=== PATIENT | female | born 2000 | race Caucasian/White ===

== ENCOUNTER 2019-09-15 05:51 | Inpatient (IN) | payer MEDICAID, OTHER ==
[2019-09-15 06:33] VITALS: BMI 39.4
[2019-09-15] MEDS ORDERED: Diphenoxylate HCl/Atropine Tablet PO PRN (07:01)
[2019-09-15] MEDS ORDERED: Methylergonovine 0.2 MG/ML VIAL IM PRN (07:01)
[2019-09-15] MEDS ORDERED: Butorphanol Tartrate 1 MG/ML VIAL SLOW IVP PRN (07:01)
[2019-09-15] MEDS ORDERED: Ondansetron PF 4 MG/2 ML Vial IVP PRN ×2 (07:01→11:05)
[2019-09-15] MEDS ORDERED: Promethazine HCl 25 MG/ML VIAL IM PRN ×2 (07:01→11:05)
[2019-09-15] MEDS ORDERED: hydrALAZINE 20 MG/ML VIAL SLOW IVP PRN (07:01)
[2019-09-15] MEDS ORDERED: Ibuprofen 800 MG TAB PO PRN (07:01)
[2019-09-15] MEDS ORDERED: Misoprostol 200 MCG TAB PR PRN (07:01)
[2019-09-15] MEDS ORDERED: Lidocaine 1% (PF) 30 ML VIAL SC PRN (07:01)
[2019-09-15] MEDS ORDERED: Acetaminophen 500 MG TAB PO PRN (07:01)
[2019-09-15] MEDS ORDERED: NS / Oxytocin 40 units/1000ml 1,000 ML IV PRN (07:01)
[2019-09-15] MEDS ORDERED: HYDROcodone/Acetaminophen 5/325 mg Tablet PO PRN (07:01)
[2019-09-15] MEDS ORDERED: Carboprost 250 MCG/ML AMP IM PRN (07:01)
[2019-09-15] MEDS ORDERED: NS w/ Oxytocin 10 units 500 ML IV SCH (07:15)
[2019-09-15] MEDS: Lactated Ringer's 1,000 ML IV SCH ×3 (07:22→20:10)
[2019-09-15 07:24] LABS: Mean Corpuscular HGB CONC 34.5 g/dL (32.0-36.0); Mean Corpuscular Hemoglobin 33.1 pg (25.0-35.0); Mean Corpuscular Volume 96.2 fL (78.0-98.0); Mean Platelet Volume 7.4 fL (7.4-10.4); Platelet Count 347 thou/uL (130-400); RBC Distribution Width 11.6 % (11.5-14.5); Red Blood Cell (RBC) Count 4.23 mill/uL (4.00-5.20); White Blood Cell (WBC) Count 19.8 thou/uL (4.8-10.8)
[2019-09-15 08:05] LABS: Hep B Surf Ag Non-Reactive S/CO (NonReactive)
[2019-09-15 08:09] LABS: Syphilis Antibody Nonreactive (Nonreactive); Syphilis Antibody Index 0.05 S/CO (<1.00 Non-Reactive)
[2019-09-15] MEDS ORDERED: Bupivacaine/Epinephrine 0.25% 30 ML VIAL ONE (08:59)
[2019-09-15 09:41] LABS: Amphetamine Not Detected (NotDetected); Barbiturates Screen Not Detected (NotDetected); Benzodiazepine Screen Not Detected (NotDetected); Cocaine Metabolite Screen Not Detected (NotDetected); Medtox Control Line Valid? VALID (VALID); Medtox Reader # READER 1; Methadone Not Detected (NotDetected); Methamphetamine Not Detected (NotDetected); Opiate Screen Not Detected (NotDetected); Oxycodone Screen Not Detected (NotDetected); Phencyclidine (PCP) Not Detected (NotDetected); THC/Cannabinoid Screen Not Detected (NotDetected); Tricyclic Screen Not Detected (NotDetected)
--- NOTE | 2019-09-15 09:51 | PDOC.LDHP ---
Labor and Delivery H&P Chief complaint: scheduled induction HPI: 18yo at 39w 0d by LMP here for elective IOL. No complaints, no PIH sx Current gestational age (weeks): 39 Due date: 09/22/19 Dating criteria: last menstrual period Grav: 3 Para: 0 Current complications: none Abnormal US findings: No (EFW 51%ile) Past Medical History: HSV, molluscum contagiosum Current medications: pre- vitamins, other (valtrex, sertraline) Previous surgical history: none Allergies/Adverse Reactions: Allergies Allergy/AdvReac Type Severity Reaction Status Date / Time No Known Allergies Allergy Verified 09/15/19 06:18 Social history: drug use (hx of thc use), none - Physical Exam Vital signs reviewed and normal: yes General: NAD Heart: RRR Lungs: CTAB Abdomen: gravid Extremeties: no edema FHT: category 1 [place] contractions every: 3min - Vaginal Exam cm dilated: 3 Effacement: 75% Station: -2 (arom clear) - OB Labs Blood type: A RH: positive Antibody Screen: negative HIV: negative RPR: negative HEPSAg: negative 1 hour GCT: negative GBS: negative Urine drug screen: positive Rubella: immune - Assessment L&D Assessment: elective induction at term - Plan Plan: admit to L&D, labor augmentation if indicated, informed consent obtained, anesthesia consult for pain management -: No HSV lesions on exam or prodromal sx, on suppression
[2019-09-15] MEDS ORDERED: Fentanyl 4 mcg/Bup 0.1% Cadd 100 ML ONE ×3 (10:28→23:44)
[2019-09-15] MEDS ORDERED: diphenhydrAMINE 50 MG/ML VIAL IVP PRN (11:05)
[2019-09-15] MEDS ORDERED: EPHEDRINE 25 MG/5 ML SYRINGE SLOW IVP PRN (11:05)
[2019-09-15] MEDS ORDERED: Lactated Ringer's 500 ML IV PRN (11:05)
[2019-09-15] MEDS ORDERED: Naloxone HCl 0.4 mg/ml Vial IVP PRN ×2 (11:05)
[2019-09-15] MEDS ORDERED: Acetaminophen 325 MG TAB PO PRN (11:05)
[2019-09-15] MEDS ORDERED: Fentanyl 4 mcg/Bupivacaine 0.1% Cassette 100 ML EPIDURAL SCH (11:15)
[2019-09-15] MEDS ORDERED: Communication Order-Pharmacy FS SCH (11:15)
[2019-09-15] MEDS ORDERED: Hydrocerin (Eucerin) Cream 120 gm Jar ONE (18:11)
[2019-09-15] MEDS ORDERED: Hydrocerin (Eucerin) Cream 120 gm Jar TOP SCH (18:30)
[2019-09-16] MEDS: Lactated Ringer's 1,000 ML IV SCH (00:13)
[2019-09-16] MEDS ORDERED: Oxytocin 10 UNITS/ML VIAL ONE ×2 (00:36→01:35)
[2019-09-16] MEDS ORDERED: MORPHINE 5 MG/10 ML PF VIAL ONE (00:37)
[2019-09-16] MEDS ORDERED: Lidocaine 2% MPF 10 ML AMP (For Epidural Use) ONE (00:38)
[2019-09-16] MEDS ORDERED: PHENYLEPHRINE-NS 100 MCG/ML 10 ML SYRINGE ONE (00:38)
[2019-09-16] MEDS ORDERED: Ondansetron PF 4 MG/2 ML Vial ONE (00:38)
[2019-09-16] MEDS ORDERED: EPHEDRINE 25 MG/5 ML SYRINGE ONE (00:38)
[2019-09-16] MEDS ORDERED: Ketorolac Tromethamine 30 MG/ML VIAL ONE (00:38)
[2019-09-16] MEDS ORDERED: Bicitra 30 ML UDCUP ONE (00:47)
[2019-09-16] MEDS ORDERED: Azithromycin 500 MG VIAL ONE (00:49)
--- NOTE | 2019-09-16 00:54 | PDOC.LDPN ---
Labor & Delivery Progress Note - Subjective Subjective: comfortable - Objective Vital signs reviewed and normal: yes General: NAD Uterine fundus: non tender Dilation: 7 Effacement: 90% Station: 0 FHT: category 2, late decelerations [place] contractions every: 2-3min Resuscitative measures: maternal IV fluids, maternal position change, other Plan: resuscitative measures -: Patient has been arrested at 7cm since 1700 (7hr) and has had 2 episodes of late or prolonged decels requiring turning pitocin off. Baby recovers to Cat 1 with this intervention. Dispo for PCS for AOAP at 7cm and NRFHT. Risks and benefits discussed with patient. Pt desires to proceed.
--- NOTE | 2019-09-16 00:57 | PDOC.OPDEL ---
OB Operative/Delivery Note Delivery Dr/Surgeon: Monisha Assist: Linda Pre-Delivery Diagnosis: arrest of dilation (at 7cm) Procedure/Post Delivery Dx: primary low transverse CS Weeks gestation: 39 Anesthesia: epidural - Findings A Sex: male - Additional Findings/Plan Placenta delivered: spontaneous findings: low transverse hysterotomy without extension, normal uterus, normal tubes, normal ovaries Post delivery plan: routine recovery
[2019-09-16] MEDS ORDERED: Azithromycin 500 MG in Sodium Chloride 0.9% 250 ML 250 ML IVPB SCH (01:00)
[2019-09-16] MEDS ORDERED: Bicitra 30 ML UDCUP PO SCH (01:00)
[2019-09-16] MEDS ORDERED: CEFAZOLIN 2 GM in Premix Bag 1 BAG IVPB SCH (01:00)
[2019-09-16] MEDS ORDERED: Promethazine HCl 25 MG/ML VIAL ONE (01:40)
[2019-09-16] MEDS ORDERED: L&D-Morphine 4 MG/ML VIAL SLOW IVP PRN (01:47)
[2019-09-16] MEDS ORDERED: Naloxone HCl 0.4 mg/ml Vial IV PRN (01:47)
[2019-09-16] MEDS ORDERED: Promethazine HCl 25 MG/ML VIAL IM PRN ×2 (01:47→04:11)
[2019-09-16] MEDS ORDERED: Meperidine HCl/PF 25 MG/ML VIAL SLOW IVP PRN (01:47)
[2019-09-16] MEDS ORDERED: Ondansetron HCl/PF 4 MG/2 ML Vial IVP PRN (01:47)
[2019-09-16] MEDS ORDERED: diphenhydrAMINE 50 MG/ML VIAL IVP PRN (01:47)
[2019-09-16] MEDS ORDERED: Promethazine HCl 25 MG SUPP PR PRN (01:47)
[2019-09-16] MEDS ORDERED: Ondansetron PF 4 MG/2 ML Vial IVP PRN ×2 (01:47→04:11)
[2019-09-16] MEDS ORDERED: HYDROmorphone 2 MG/ML VIAL SLOW IVP PRN (01:47)
[2019-09-16] MEDS ORDERED: Naloxone HCl 0.4 mg/ml Vial IVP PRN ×2 (01:47)
[2019-09-16] MEDS ORDERED: Ketorolac Tromethamine 30 MG/ML VIAL IVP SCH (02:00)
[2019-09-16] MEDS ORDERED: Communication Order-Pharmacy FS SCH (02:00)
[2019-09-16] MEDS ORDERED: Meperidine HCl/PF 25 MG/ML VIAL ONE (03:52)
[2019-09-16] MEDS ORDERED: Acetaminophen 325 MG TAB PO PRN (04:11)
[2019-09-16] MEDS ORDERED: hydrALAZINE 20 MG/ML VIAL SLOW IVP PRN (04:11)
[2019-09-16] MEDS ORDERED: Bisacodyl 10 MG SUPP PR PRN (04:11)
[2019-09-16] MEDS ORDERED: diphenhydrAMINE 25 MG CAP PO PRN (04:11)
[2019-09-16] MEDS ORDERED: Lanolin Ointment 7 GM TUBE TOP PRN (04:11)
[2019-09-16] MEDS: Ibuprofen 800 MG TAB PO SCH ×3 (06:48→22:28)
[2019-09-16] MEDS: Ketorolac Tromethamine 30 MG/ML VIAL IVP PRN ×2 (07:33→13:30)
[2019-09-16] MEDS ORDERED: Adacel (T-DAP) 0.5 ML SYRINGE IM ONE (09:00)
[2019-09-16] MEDS: Ferrous Sulfate 325 MG TAB PO SCH ×2 (09:32→22:25)
[2019-09-16] MEDS: Docusate Calcium (SURFAK) 240 MG CAP PO SCH ×2 (09:33→22:29)
[2019-09-16] MEDS: Prenatal Vitamin 1 TAB PO SCH (09:33)
[2019-09-16] MEDS: Morphine 2 MG/ML SYRINGE SLOW IVP PRN ×2 (10:11→12:02)
[2019-09-16] MEDS: HYDROcodone/Acetaminophen 5/325 mg Tablet PO PRN ×2 (15:04→20:22)
[2019-09-16] MEDS: Simethicone Chewable 80 MG TAB PO PRN ×2 (15:04→20:22)
--- NOTE | 2019-09-16 16:29 | OP ---
DATE OF PROCEDURE: 09/16/2019 PREOPERATIVE DIAGNOSES: 1. Intrauterine at 39 weeks and 1 day. 2. Arrest of active phase at 7 cm. 3. Non-reassuring heart tones. POSTOPERATIVE DIAGNOSES: 1. Intrauterine at 39 weeks and 1 day. 2. Arrest of active phase at 7 cm. 3. Non-reassuring heart tones. PROCEDURE PERFORMED: Primary low-transverse section via Pfannenstiel skin incision. ANESTHESIA: Epidural. POWERSAW SUPERVISOR SURGEON: Linda, PGY-3. ESTIMATED BLOOD LOSS: 500 mL. COMPLICATIONS: None. DRAINS: Moran catheter. PATHOLOGY: None. FINDINGS: Male infant, cephalic presentation, XAVIER, asynclitic with caput and molding. Weight and Apgars are currently pending. Hysterotomy without extension. Normal uterus, ovaries, and tubes bilaterally. DESCRIPTION OF PROCEDURE: The patient was taken to the operating room, where epidural anesthesia was found to be inadequate. The patient was prepped and draped in a sterile fashion in a dorsal supine position with a leftward tilt. After ensuring adequacy of anesthesia, a Pfannenstiel skin incision was made and carried down to the underlying subcutaneous tissue with a knife. The fascia was nicked in the midline with the Bovie and carried laterally with the Echeverria scissors. The superior aspect of the fascia was tented with 2 Kochers and dissected off the rectus with the Echeverria scissors. The inferior aspect of the fascia was tented with 2 Kochers and dissected off the rectus down to pubic symphysis. The rectus was bluntly divided in midline. The peritoneum was bluntly entered into and manually retracted. The Rufino O retractor was placed and the lower uterine segment was incised in a transverse fashion and extended with a Gannon maneuver. The 's head was brought to the hysterotomy and delivered atraumatically with fundal pressure. The 's cord was clamped and handed to awaiting Ricardo team. Cord blood was obtained and the placenta was allowed to spontaneously deliver. The uterus was exteriorized, cleared of all clots and debris, and the posterior cul-de-sac was left out. The uterus was placed back into the abdomen and hysterotomy was repaired with #1 Monocryl in a running locking fashion. Additional [id number] #1 Monocryl suture was placed over the left aspect of the incision for hemostasis. Irrigation was performed of the pelvis and paracolic gutters and suctioned and hemostasis was noted to be excellent. The Rufino O retractor was removed. The rectus muscles were examined and noted to be hemostatic. The fascia was reapproximated with 0 PDS x2 sutures with excellent reapproximation. The subcutaneous tissue was irrigated and cauterized of any bleeders and reapproximated with 2-0 plain gut in a running fashion. The skin was closed with 4-0 Monocryl in a subcuticular fashion. Dermabond was applied as well as a pressure dressing. The patient tolerated the procedure well. Sponge, lap, and needle counts were correct x2. The patient was taken to recovery room in stable condition. The patient received Ancef 2 g and azithromycin 500 mg IV prior to procedure. Job ID: [id number]
[2019-09-16] MEDS ORDERED: Diabetic Tussin 200 MG/10 ML UDCUP PO PRN (18:29)
[2019-09-17] MEDS: HYDROcodone/Acetaminophen 5/325 mg Tablet PO PRN ×5 (04:46→22:47)
[2019-09-17] MEDS: Ibuprofen 800 MG TAB PO SCH ×3 (04:46→22:04)
[2019-09-17] MEDS ORDERED: Sodium Chloride 0.9% 0 ML ONE (04:59)
[2019-09-17 06:03] LABS: Hemoglobin 10.9 g/dL (12.0-16.0); Mean Corpuscular HGB CONC 32.8 g/dL (32.0-36.0); Mean Corpuscular Hemoglobin 31.9 pg (25.0-35.0); Mean Corpuscular Volume 97.3 fL (78.0-98.0); Mean Platelet Volume 7.5 fL (7.4-10.4); Platelet Count 250 thou/uL (130-400); RBC Distribution Width 11.9 % (11.5-14.5); White Blood Cell (WBC) Count 24.5 thou/uL (4.8-10.8)
[2019-09-17] MEDS: Ferrous Sulfate 325 MG TAB PO SCH ×2 (07:37→22:03)
[2019-09-17] MEDS: Docusate Calcium (SURFAK) 240 MG CAP PO SCH ×2 (08:26→22:04)
[2019-09-17] MEDS: Prenatal Vitamin 1 TAB PO SCH (08:26)
--- NOTE | 2019-09-17 11:27 | PDOC.PP ---
Post Progress Note Post Day #: 1 PO intake tolerated: yes Flatus: yes Ambulation: yes Vital Signs (12 hours) Temp Pulse Resp BP Pulse Ox 09/17/19 07:41 98.0 F 85 20 110/57 L 95 09/17/19 04:48 98.2 F 78 12 116/59 L 97 09/17/19 00:32 97.9 F 72 12 97/50 L 96 Weight Weight 230 lb - Physical Examination General: NAD Respiratory: non-labored breathing Abdominal: no distention, appropriately TTP Fundus firm & at: umb Extremities: negative homans (B) Skin: CS incision dry & intact Neurological: no gross focal deficits Psychiatric: normal affect Result Diagrams: 09/17/19 05:28 Additional Labs: Post Labs Blood Type A POSITIVE 09/15/19 07:43 Hep Bs Antigen Non-Reactive S/CO (NonReactive) 09/15/19 07:13 - Assessment/Plan POD1 s/p PCS for AOAP VSSAF Doing well, appropriate milestones Mild asymptomatic anemia due to surgical blood loss, cont PNV, appropriate drop in hgb. Breast and bottlefeeding Rh pos RImm Cont postop care, home tomorrow
[2019-09-18] MEDS: Ibuprofen 800 MG TAB PO SCH (05:12)
[2019-09-18 08:24] VITALS: BP 113/57; TEMP 98.2
[2019-09-18] MEDS: Docusate Calcium (SURFAK) 240 MG CAP PO SCH (09:13)
[2019-09-18] MEDS: Ferrous Sulfate 325 MG TAB PO SCH (09:13)
[2019-09-18] MEDS: Prenatal Vitamin 1 TAB PO SCH (09:13)
[2019-09-18] MEDS: HYDROcodone/Acetaminophen 5/325 mg Tablet PO PRN (10:37)
--- NOTE | 2019-09-18 11:16 | PDOC.PP ---
Post Progress Note Post Day #: 2 PO intake tolerated: yes Flatus: yes Ambulation: yes Vital Signs (12 hours) Temp Pulse Resp BP Pulse Ox 09/18/19 08:23 98.2 F 88 20 113/57 L 98 09/18/19 08:10 98 09/18/19 05:11 97.9 F 77 12 95/53 L 96 09/18/19 00:46 98.1 F 93 12 114/53 L 95 Weight Weight 230 lb - Physical Examination General: NAD Respiratory: non-labored breathing Abdominal: no distention, appropriately TTP Skin: CS incision dry & intact Neurological: no gross focal deficits Psychiatric: normal affect Result Diagrams: 09/17/19 05:28 Additional Labs: Post Labs Blood Type A POSITIVE 09/15/19 07:43 Hep Bs Antigen Non-Reactive S/CO (NonReactive) 09/15/19 07:13 - Assessment/Plan POD2 s/p PCS for AOAP VSSAF Doing well pain controlled, weaning off norco Hgb 10.9 postop, mild anemia d/t surgical blood loss, asx Rh pos RImm Br & jose feeding DC home FU 2wk
--- NOTE | 2019-09-20 23:00 | PQF ---
[employer] [facility] [facility] ROBERT MADSEN [id number] CLINICAL DOCUMENTATION CLARIFICATION FORM: POST DISCHARGE Addendum to original discharge summary date: ____ Late entry note date: __ DATE: 09/20/2019 ATTN: Robert Montanez Please exercise your independent, professional judgment in responding to the clarification form. Clinical indicators are provided on the bottom of this form for your review Kindly clarify regarding anemia Please check appropriate box(s): [ ] Acute blood loss anemia [ X ] Post-op anemia related to acute blood loss [ ] Other diagnosis [ ] Unable to determine In addition, please specify: Present on Admission (POA): [ ] Yes [ X] No [ ] Unable to determine For continuity of documentation, please document condition throughout progress notes and discharge summary. Thank You. CLINICAL INDICATORS - SIGNS / SYMPTOMS / LABS Mild asymptomatic anemia due to surgical blood loss, continue PNV, appropriate drop in HGB - progress note dated 09/16 by Robert Montanez HGB 10.9 postop, mild anemia due to surgical blood loss - progress note dated 09/17 by Robert Montanez Hemoglobin is 14.0 on 09/14 and 10.9 on 09/16 and hematocrit is 40.7 on 09/14 and 33.1 on 09/16 - Laboratory RISK FACTORS Primary low transverse section dated 09/15 by Robert Montanez - Operative notes dated 09/15 TREATMENTS: Continue PNV - progress note dated 09/16 by Robert Montanez IM Hemabate from 09/14 to 09/15 - Medications (This form is maintained as a part of the permanent medical record) 2014 [employer]. All Rights Reserved [email or web address]
== END 2019-09-18 12:35 | disposition home or self-care (01) | DRG 787 ==
LOC: L&D 05:51 → 3SW 09-16 05:02 → EDSTATUS 09-22 15:05
PROVIDERS: ADMIT Student in an Organized Health Care Education/Training Program; ATTEND Student in an Organized Health Care Education/Training Program
PROC: 10D00Z1 Extraction of Products of Conception, Low, Open Approach (ICD-10-PCS; principal; 2019-09-16)
DX: O76 Abnormality in fetal heart rate and rhythm complicating labor and delivery (principal); D62 Acute posthemorrhagic anemia; O62.1 Secondary uterine inertia; Z3A.39 39 weeks gestation of pregnancy; Z37.0 Single live birth; O90.81 Anemia of the puerperium
CPT/HCPCS: 36415; 51702; 80306; 85027; 86780; 86850; 86900; 86901; 87340; J0456; J0690; J1885; J2001; J2175; J2270; J2274; J2405; J2550; J2590

== ENCOUNTER 2019-11-19 11:06 | Emergency (ER) | payer OTHER ==
--- NOTE | 2019-11-19 13:55 | RAD ---
TWO VIEW CHEST: 11/19/19 HISTORY: Cough. Lung hayes are clear. No infiltrate. The heart and mediastinum unremarkable. Osseous structures appe ar normal. IMPRESSION: Negative chest. POS: AH
== END 2019-11-19 12:30 | disposition home or self-care (01) ==
LOC: ERS 11:06
DX: R05 Cough (principal); Z20.828 Contact with and (suspected) exposure to other viral communicable diseases
CPT/HCPCS: 71046; 87635; U0003

== ENCOUNTER 2022-05-03 08:56 | Outpatient (CLI) | payer OTHER | END 2022-05-03 08:57 | disposition home or self-care (01) | LOC: BICULT 08:56 | PROVIDERS: ATTEND Physician Assistant Medical | DX: R74.01 Elevation of levels of liver transaminase levels (principal); R76.8 Other specified abnormal immunological findings in serum | CPT/HCPCS: 76705 ==

== ENCOUNTER 2022-08-23 03:39 | Observation (INO) | payer MEDICAID, OTHER ==
[2022-08-23] MEDS ORDERED: Ondansetron PF 4 MG/2 ML Vial ONE ×2 (03:51→04:00)
[2022-08-23] MEDS ORDERED: Ketorolac Tromethamine 30 MG/ML VIAL ONE (04:00)
[2022-08-23 04:33] LABS: #Basophils 0.1 thou/uL (0.0-0.2); #Eosinphils 0.2 thou/uL (0.0-0.7); #Lymphocytes 3.8 thou/uL (1.20-3.40); #Monocytes 1.3 thou/uL (0.11-0.59); #Neutrophils 12.5 thou/uL (1.40-6.50); %Basophils 0.6 % (0.0-1.0); %Eosinophils 1.1 % (0.0-10.0); %Lymphocytes 21.4 % (21.0-51.0); %Monocytes 7.3 % (0.0-10.0); %Neutrophils 69.6 % (42.0-75.0); Hemoglobin 13.3 g/dL (12.0-16.0); Mean Corpuscular HGB CONC 33.2 g/dL (32.0-36.0); Mean Corpuscular Hemoglobin 31.6 pg (27.0-31.0); Mean Corpuscular Volume 95.2 fl (78.0-98.0); Mean Platelet Volume 6.9 fL (7.4-10.4); Platelet Count 375 10x3/uL (130-400); RBC Distribution Width 11.6 % (11.5-14.5); White Blood Cell (WBC) Count 17.9 10x3/uL (4.8-10.8)
[2022-08-23 04:40] LABS: BHCG - Serum Negative (NEGATIVE); Pregs Control Background? CLEAR/WHITE (CLR/WHITE); Pregs Control Bar Appear? YES (CONTROL BAR)
[2022-08-23] MEDS ORDERED: FENTANYL 50 MCG/ML 1 ML VIAL ONE (04:53)
[2022-08-23 05:03] LABS: ALT (SGPT) 15 U/L (8-55); AST (SGOT) 13 U/L (5-34); Alkaline Phosphatase 61 U/L (40-110); Anion Gap 14 mmol/L (10-20); BUN (Urea Nitrogen) 13 mg/dL (7.0-18.7); Bilirubin, Total Less than 0.2 mg/dL (0.2-1.2); Calc. Creatinine Clearance 0 mL/min (70-130); Calcium 9.2 mg/dL (7.8-10.44); Carbon Dioxide 23 mmol/L (22-29); Chloride 109 mmol/L (98-107); Estimated GFR 102; Globulin 2.6 g/dL (2.4-3.5); Glucose 152 mg/dL (70-105); Lipase 40 U/L (8-78); Potassium 3.3 mmol/L (3.5-5.1); Protein, Total 6.6 g/dL (6.0-8.3); Sodium 143 mmol/L (136-145)
[2022-08-23 05:42] LABS: Bacteria/HPF None Seen HPF (None Seen); Bilirubin Negative (Negative); Blood, Urine Negative (Negative); Clarity Clear (Clear); Glucose, Urine (Dipstick) Normal (Negative); Ketone, Urine Trace mg/dL (Negative); Leukocyte Negative Leu/uL (Negative); Nitrite Negative (Negative); Protein, Urine (Dipstick) 30 mg/dL (Neg-Trace); RBC/HPF 0-3 HPF (0-3); Specific Gravity, Urine 1.035 (1.002-1.036); pH, Urine 5.5 (5.0-9.0)
[2022-08-23] MEDS ORDERED: Morphine 4 MG/ML VIAL ONE (05:58)
[2022-08-23] MEDS ORDERED: Metoclopramide HCl 10 MG/2 ML VIAL ONE (05:59)
[2022-08-23] MEDS ORDERED: Guaifenesin DM 100-10/5 ML UDCUP PO PRN (07:37)
[2022-08-23] MEDS ORDERED: Ondansetron PF 4 MG/2 ML Vial IVP PRN (07:37)
[2022-08-23] MEDS ORDERED: Ketorolac Tromethamine 30 MG/ML VIAL IVP PRN (07:43)
[2022-08-23 07:59] LABS: Amphetamine Not Detected (NotDetected); Barbiturates Screen Not Detected (NotDetected); Benzodiazepine Screen Not Detected (NotDetected); Cocaine Metabolite Screen Not Detected (NotDetected); Methadone Not Detected (NotDetected); Methamphetamine Not Detected (NotDetected); Opiate Screen Not Detected (NotDetected); Oxycodone Screen Not Detected (NotDetected); Phencyclidine (PCP) Not Detected (NotDetected); THC/Cannabinoid Screen Detected (NotDetected); Tricyclic Screen Not Detected (NotDetected)
[2022-08-23] MEDS ORDERED: HYDROcodone/Acetaminophen 10/325 mg Tablet PO PRN (08:24)
[2022-08-23] MEDS ORDERED: Iopamidol-370 76% 500 ML 1 ML ONE (09:03)
[2022-08-23] MEDS: Sodium Chloride 0.9% 1,000 ML IV SCH ×2 (09:06→21:33)
[2022-08-23] MEDS: FLUoxetine HCl 20 MG CAP PO SCH (09:07)
[2022-08-23 10:29] VITALS: BMI 36.2
[2022-08-23] MEDS ORDERED: Melatonin 3 MG TAB PO PRN (20:16)
[2022-08-23] MEDS ORDERED: Calcium Carbonate 500 MG ChewTAB PO PRN (21:04)
[2022-08-24 08:01] LABS: #Eosinphils 0.1 thou/uL (0.0-0.7); #Lymphocytes 3.4 thou/uL (1.20-3.40); #Monocytes 0.8 thou/uL (0.11-0.59); #Neutrophils 4.1 thou/uL (1.40-6.50); %Basophils 0.2 % (0.0-1.0); %Eosinophils 1.6 % (0.0-10.0); %Lymphocytes 40.5 % (21.0-51.0); %Monocytes 9.2 % (0.0-10.0); %Neutrophils 48.5 % (42.0-75.0); Hemoglobin 12.4 g/dL (12.0-16.0); Mean Corpuscular HGB CONC 33.4 g/dL (32.0-36.0); Mean Corpuscular Hemoglobin 32.2 pg (27.0-31.0); Mean Corpuscular Volume 96.4 fl (78.0-98.0); Platelet Count 291 10x3/uL (130-400); RBC Distribution Width 11.7 % (11.5-14.5); Red Blood Cell (RBC) Count 3.84 mill/uL (4.20-5.40); White Blood Cell (WBC) Count 8.5 10x3/uL (4.8-10.8)
[2022-08-24 08:18] LABS: Anion Gap 12 mmol/L (10-20); BUN (Urea Nitrogen) 9 mg/dL (7.0-18.7); Calc. Creatinine Clearance 172 mL/min (70-130); Calcium 9.4 mg/dL (7.8-10.44); Carbon Dioxide 21 mmol/L (22-29); Chloride 112 mmol/L (98-107); Estimated GFR 111; Glucose 89 mg/dL (70-105); Potassium 3.9 mmol/L (3.5-5.1); Sodium 141 mmol/L (136-145)
[2022-08-24] MEDS: FLUoxetine HCl 20 MG CAP PO SCH (09:06)
[2022-08-24] MEDS ORDERED: Iopamidol-370 76% 500 ML 1 ML ONE (10:23)
[2022-08-24 12:00] VITALS: BP 122/71; TEMP 98.4
== END 2022-08-24 12:30 | disposition home or self-care (01) ==
LOC: ERS 03:39 → T4-A 08:17
PROVIDERS: ADMIT Hospitalist; ATTEND Hospitalist
DX: N83.202 Unspecified ovarian cyst, left side (principal); N13.30 Unspecified hydronephrosis; N13.4 Hydroureter; D72.829 Elevated white blood cell count, unspecified; F17.210 Nicotine dependence, cigarettes, uncomplicated; F41.9 Anxiety disorder, unspecified; F32.A Depression, unspecified; Z79.899 Other long term (current) drug therapy; Z20.822 Contact with and (suspected) exposure to COVID-19
CPT/HCPCS: 36415; 74177; 74178; 76856; 80048; 80053; 80306; 81003; 81015; 83690; 84703; 85025; 94760; 96361; 96365; 96375; 96376; G0378; J1650; J1885; J2270; J2405; J2765; J3010; J7050; Q9967; U0003; U0005